=== PATIENT | male | born 1980 | race Caucasian/White ===

== ENCOUNTER 2017-03-21 08:55 | Outpatient (CLI) | END 2017-03-21 08:56 | disposition home or self-care (01) | LOC: LAB 08:55 | PROVIDERS: ATTEND Family Medicine | DX: Z00.00 Encounter for general adult medical examination without abnormal findings (principal); Z13.220 Encounter for screening for lipoid disorders; N52.9 Male erectile dysfunction, unspecified; R53.83 Other fatigue; E55.9 Vitamin D deficiency, unspecified | CPT/HCPCS: 36415; 80053; 80061; 82306; 82533; 82607; 84402; 84403; 84439; 84443; 84481; 85027 ==

== ENCOUNTER 2017-04-07 09:06 | Outpatient (CLI) | END 2017-04-07 09:07 | disposition home or self-care (01) | LOC: LAB 09:06 | PROVIDERS: ATTEND Family Medicine | DX: E29.1 Testicular hypofunction (principal) | CPT/HCPCS: 36415; 84403 ==

== ENCOUNTER 2017-05-27 06:54 | Outpatient (CLI) | END 2017-05-27 06:55 | disposition home or self-care (01) | LOC: LAB 06:54 | PROVIDERS: ATTEND Family Medicine | DX: E29.1 Testicular hypofunction (principal); R53.83 Other fatigue; E55.9 Vitamin D deficiency, unspecified; N52.9 Male erectile dysfunction, unspecified; Z79.899 Other long term (current) drug therapy | CPT/HCPCS: 36415; 80053; 82306; 82670; 84402; 84403; 85027 ==

== ENCOUNTER 2017-06-05 08:42 | Outpatient (CLI) ==
[2017-06-05 11:07] VITALS: BMI 28.8
== END 2017-06-05 08:43 | disposition home or self-care (01) ==
LOC: DIETCN 08:42
PROVIDERS: ATTEND Family Medicine
DX: E66.9 Obesity, unspecified (principal)

== ENCOUNTER 2017-09-08 05:59 | Outpatient (CLI) | END 2017-09-08 06:00 | disposition home or self-care (01) | LOC: LAB 05:59 | PROVIDERS: ATTEND Family Medicine | DX: E29.1 Testicular hypofunction (principal); R53.83 Other fatigue; E55.9 Vitamin D deficiency, unspecified; Z79.899 Other long term (current) drug therapy | CPT/HCPCS: 36415; 80053; 82306; 82670; 84402; 84403; 85027 ==